=== PATIENT | female | born 1955 | race African-American/Black ===

== ENCOUNTER → 2016-08-19 | Outpatient (CLI) | payer OTHER ==
[~2016-08-19] MED LIST: FERR-26 PO; HYDR25TA9 PO; IBUP-1060 PO; MULT-460 PO
[2016-08-19 15:09] VITALS: BP 138/91
== END | disposition home or self-care (01) ==
LOC: SURGPAT 16:11
PROVIDERS: ATTEND Orthopaedic Surgery
DX: Z01.812 Encounter for preprocedural laboratory examination (principal); M17.11 Unilateral primary osteoarthritis, right knee
CPT/HCPCS: 87641

== ENCOUNTER 2016-09-09 05:32 | Inpatient (IN) | payer MEDICARE, OTHER ==
--- NOTE | 2016-09-08 12:24 | PDOC1 ---
History and Physical Date of Admission Date of Admission DATE: 09/09/16 Identification/Chief Complaint Chief Complaint right knee osteoarthritis pain Source Source: Chart review History of Present Illness History of Present Illness This 61-year-old woman has a long history of bilateral knee pain and diagnosis of knee osteoarthritis. She has had several corticosteroid injections for treatment. She's been doing a home exercise program for strengthening. I saw her previously and recommended that she get dental work done before considering total knee arthroplasty. She now has a dentist near [facility], Dannie Gonzalez, [facility] - General Dentistry - [address], [place] who treated one of her infected teeth by removal of the tooth and oral antibiotics. She has another tooth that is not infected but he is keeping on it. It sounds like she is getting routine care now. She needs to continue doing that we discussed the risks of infected total knee arthroplasty. She no longer has a primary care physician. She needs to get one before we would proceed with arthroplasty. Recently she reports a cough and some pleuritic chest pain. She has daily symptoms in the knee, that affect her activities of daily living. She requested my opinion on a local primary care doctor and I suggested Dr. Gladis Chris, if she is taking new patients. Past Medical History Cardiovascular: HTN Musculoskeletal: Osteoarthritis Past Surgical History Past Surgical History: Tonsillectomy, Hysterectomy Family History Family History: Cancer, Osteo Arthiritis Social History Smoke: No ALCOHOL: none Drugs: None Current Medications Current Medications Current Medications Ondansetron HCl (Zofran) 4 mg PRN Q6HRS PRN IV Nausea; Start 09/09/16 at 07:00 ; Stop 09/10/16 at 06:59; Status UNV Fentanyl Citrate (Fentanyl 2ml Vial) 25 mcg PRN Q5MIN PRN IV MILD PAIN; Start 09/09/16 at 07:00; Stop 09/10/16 at 06:59 Fentanyl Citrate (Fentanyl 2ml Vial) 50 mcg PRN Q5MIN PRN IV MODERATE PAIN; Start 09/09/16 at 07:00; Stop 09/10/16 at 06:59 Morphine Sulfate 1 mg 1 mg PRN Q10MIN PRN IV SEVERE PAIN; Start 09/09/16 at 07: 00; Stop 09/10/16 at 06:59; Status UNV Lactated Ringer's (Iv Lactated Ringers) 1,000 ml @ 0 mls/hr Q0M IV ; Start at 07:00; Stop 09/09/16 at 18:59; Status UNV Lidocaine HCl 2 ml 1X PRN PRN ID IV START; Start 09/09/16 at 07:00; Stop at 06:59; Status UNV Hydromorphone HCl (Dilaudid) 0.5 mg PRN Q10MIN PRN IV SEVERE PAIN, Second choice; Start 09/09/16 at 07:00; Stop 09/10/16 at 06:59; Status UNV Prochlorperazine Edisylate (Compazine) 5 mg PACU PRN PRN IV NAUSEA; Start 09/09 at 07:00; Stop 09/10/16 at 06:59; Status UNV Active Scripts Active Reported Ferrous Sulfate 325 Mg Tablet 1 Tab PO DAILY Multiple Vitamin (Multivitamin With Minerals) 1 Each Tablet 1 Each PO DAILY Hydrochlorothiazide Tablet (Hydrochlorothiazide) 25 Mg Tablet 1 Tab PO DAILY Allergies Allergies: Coded Allergies: No Known Drug Allergies (Unverified , 08/23/14) Physical Exam General: Alert, Oriented X3, Cooperative, No acute distress HEENT: Atraumatic, EOMI Lungs: Normal air movement Heart: RRR Abdomen: Soft Extremities: No clubbing, No cyanosis, Normal pulses, Other (The right knee shows her mildly antalgic gait. There is valgus alignment. No masses. No detectable effusion. Tenderness on the joint lines. Range of motion is 5-115 degrees. There is crepitus with range of motion, and pain at the extremes of motion. The knee is stable to varus and valgus stress without subluxation or laxity. Muscle strength is normal (5/5) for quadriceps and hamstrings, and muscle tone is normal. The skin is normal with no scars, rashes, lesions or ulcers. Light touch sensation is intact. No edema and no varicosities. Dorsalis pedis pulse is intact and capillary refill is normal. The left knee shows valgus alignment. No masses. No detectable effusion. Tenderness on the joint lines. Range of motion is 5-115 degrees. There is crepitus with range of motion , and pain at the extremes of motion. The knee is stable to varus and valgus stress without subluxation or laxity. Muscle strength is normal (5/5) for quadriceps and hamstrings, and muscle tone is normal. The skin is normal with no scars, rashes, lesions or ulcers. Light touch sensation is intact. No edema and no varicosities. Dorsalis pedis pulse is intact and capillary refill is normal.) Skin: No rashes, No breakdown, No significant lesion Neuro: Normal speech, Sensation intact Psych/Mental Status: Mental status NL, Mood NL VTE Prophylaxis Ordered VTE Prophylaxis Devices: Yes VTE Pharmacological Prophylaxi: Yes Assessment/Plan Assessment/Plan Right knee osteoarthritis. The patient and Dr. Cano discussed options for treatment. She is now 61 years old and has daily symptoms in her knees. She has [id number] changes radiographically. Cortisone injections only given her brief relief. She has tried an exercise program with minimal improvement in her symptoms. She has occasional giving way episodes. The only surgery would recommend his total knee arthroplasty. Due to the risks of simultaneous bilateral arthroplasty Dr. Cano recommended doing one at a time. We discussed the risks benefits and alternatives of total knee arthroplasty. She would benefit regarding her pain and ability to remain active. There are certainly risks and we discussed those in detail. We discussed the potential risks of infection, neurovascular injury, bleeding, blood clots, need for revision surgery, or other potential surgical or anesthetic complications. We discussed the potential of infection if her teeth continue to be a problem although it sounds like those are being treated appropriately now. There is some risk of revision during her lifetime but I would plan to use a "30 year knee" that may last the rest of her life. We can schedule the right total knee arthroplasty in mid to late August, and ask her to find a primary care doctor and get medical clearance. She does report this recent onset coughing pleuritic chest pain that certainly needs at least a chest x-ray before we would consider proceeding with surgery. She stated understanding of the risks benefits and alternatives and would like to proceed. We can do a left knee cortisone injection today. CARRIE RICH Sep 08, 2016 12:24
[~2016-09-09] VITALS: Ht 182.9 cm; Wt 116.1 kg
[2016-09-09] VITALS (10 sets, daily range): BP systolic 106–144; BP diastolic 50–62
[2016-09-09] MEDS ORDERED: TRANEXAMIC ACID 1,000 MG in IV NORMAL SALINE 50ML 50 ML INJ ONE ×2 (06:00→08:00)
[2016-09-09] MEDS ORDERED: CEFAZOLIN 2GM PREMIX 50 ML IV PRN (06:00)
[2016-09-09] MEDS ORDERED: HYDROCODONE/APAP 7.5/325MG TABLET. PO PRN ×2 (06:00→09:45)
[2016-09-09] MEDS ORDERED: MORPHINE SULFATE 5 MG, KETOROLAC TROMETHAMINE 30 MG, ROPIVacaine 0.5% PF 60 ML, EPINEPH... INT ART ONE ×5 (06:00)
[2016-09-09] MEDS ORDERED: CELECOXIB 200 MG CAPSULE PO PRN (06:00)
[2016-09-09] MEDS ORDERED: CELE200C PO (06:10)
[2016-09-09] MEDS ORDERED: TOBRAMYCIN POWDER 1.2 GM VIAL. ONE (06:17)
[2016-09-09] MEDS ORDERED: VANCOMYCIN 1 GM VIAL. ONE (06:17)
[2016-09-09] MEDS ORDERED: PROCHLORPERAZINE 10 MG/2 ML VIAL. IV PRN ×2 (07:00→09:45)
[2016-09-09] MEDS ORDERED: LIDOCAINE 1% 1 ML SYRINGE. ID PRN (07:00)
[2016-09-09] MEDS ORDERED: ONDANSETRON PF 4 MG/2 ML VIAL. IV PRN (07:00)
[2016-09-09] MEDS ORDERED: MORPHINE SULFATE 2 MG/ML DISP.SYRIN. IV PRN ×2 (07:00→09:45)
[2016-09-09] MEDS ORDERED: HYDROMORPHONE 2 MG/ML VIAL. IV PRN (07:00)
[2016-09-09] MEDS ORDERED: IV RINGERS,LACTATED 1000ML 1,000 ML IV SCH (07:00)
[2016-09-09] MEDS ORDERED: FENTANYL PF 100 MCG/2 ML VIAL. IV PRN ×4 (07:00→09:45)
[2016-09-09] MEDS ORDERED: SEVOFLURANE > 120 MINUTES. IH ONE (07:11)
[2016-09-09] MEDS ORDERED: PROPOFOL 20 ML IV ONE (07:11)
[2016-09-09] MEDS ORDERED: LIDOCAINE 2% 100 MG/5 ML DISP.SYRIN. ONE (07:11)
[2016-09-09] MEDS ORDERED: ONDANSETRON PF 4 MG/2 ML VIAL. ONE (07:21)
[2016-09-09] MEDS ORDERED: DEXAMETHASONE SOD PHOS 20 MG/5 ML VIAL. ONE (07:21)
[2016-09-09] MEDS ORDERED: FENTANYL PF 100 MCG/2 ML VIAL. ONE (07:36)
[2016-09-09] MEDS ORDERED: TRAMADOL 50 MG TABLET. PO PRN ×2 (09:45)
[2016-09-09] MEDS ORDERED: DIPHENHYDRAMINE 50 MG/ML VIAL IV PRN (09:45)
[2016-09-09] MEDS ORDERED: MORPHINE SULFATE 4 MG/ML DISP.SYRIN. IV PRN ×2 (09:45)
[2016-09-09] MEDS: IV DEXTROSE 5 %-0.45 % NACL 1,000 ML IV SCH ×2 (09:45→11:47)
[2016-09-09] MEDS ORDERED: MORPHINE SULFATE 10 MG/ML VIAL. IV PRN (09:45)
[2016-09-09] MEDS ORDERED: DEXTROSE 50% 25 GM / 50ML DISP.SYRIN. IV PRN (09:45)
[2016-09-09] MEDS ORDERED: ZOLPIDEM 5 MG TABLET. PO PRN (09:45)
[2016-09-09] MEDS ORDERED: METOCLOPRAMIDE HCL 10 MG/2 ML VIAL. IV PRN (09:45)
[2016-09-09] MEDS ORDERED: HYDROCODONE/APAP 10/325 TABLET. PO PRN (09:45)
[2016-09-09] MEDS ORDERED: OXYCODONE/APAP 5/325 TABLET. PO PRN (09:45)
[2016-09-09] MEDS ORDERED: 0.9 % SODIUM CHLORIDE 10 ML DISP.SYRIN. IV PRN (09:45)
[2016-09-09] MEDS ORDERED: PROCHLORPERAZINE 5 MG TABLET. PO PRN (09:45)
[2016-09-09] MEDS ORDERED: OXYCODONE/APAP 7.5/325 TABLET. PO PRN (09:45)
[2016-09-09] MEDS ORDERED: CALCIUM CARBONATE 500 MG TAB.CHEW PO PRN (09:45)
--- NOTE | 2016-09-09 09:53 | PDOC4 ---
Operative Note Operative Note Date of Procedure: September 09, 2016 Pre-Op Diagnosis: Osteoarthritis right knee Post-Op Diagnosis: Osteoarthritis right knee Procedure: right total knee arthroplasty Surgeon: Dedrick Cano MD Movie Stunt Performer: Maame Kwan PA-C Anesthesia: General EBL: 100 mL Specimens Obtained: right knee bone and soft tissue Complications: none Implant Company: [employer] Drains: pain catheter Tourniquet time: 60 minutes Indications for Procedure: Arthritis pain unrelieved by nonoperative management. Findings: Severe osteoarthritis with bone on bone contact laterally Implants used: Size 5 right bicruciate stabilized Journey II BCS oxinium femoral component, size 5 right Journey nonporous tibial baseplate, size 5-6 10 mm right Journey II BCS XLPE articular insert, 38 mm oval Liz II resurfacing patellar component Procedure in Detail: The patient was identified in the preoperative holding area, and the correct right extremity was marked by me. The patient was taken to the operating room where the patient was anesthetized by the Department of Anesthesia. Preoperative antibiotics were given intravenously. Tranexamic acid 1 g was given intravenously for intraoperative hemostasis. A "time-out" procedure was performed. The patient was positioned supine on the operative table with a tourniquet on the upper thigh. The limb was thoroughly prepped and draped in sterile fashion. An impervious stockinet and adhesive drape were used such that the skin was entirely covered. An Block leg gonzalez was used. The operating team wore personal exhaust-ventilated hoods. The tourniquet was inflated to 350 mm Hg. A midline skin incision was made with a scalpel using the patella and tibial tubercle as landmarks. Electrocautery was used for hemostasis. My home based assistant used rake retractors. A medial parapatellar arthrotomy incision was used with extension into the distal quadriceps tendon. The patella was retracted laterally and Hohmann retractors were now used by my home based assistant. Excess synovium, the menisci, and the cruciate ligaments were resected sharply. The patella was assessed and excess synovium and osteophytes around the patellar articulation were removed. The patella was measured with a caliper, cut freehand with a saw using caliper measurements, sized, and then drilled for an oval three-pegged patella component. Periarticular injection was used in the suprapatellar pouch and distal quadriceps muscle. Whitesides's line was assessed on the femur. An intra-medullary 5 degree cutting guide was pinned to the femur, and a distal femoral cut was made with an oscillating saw. An additional 4 mm resection was used due to the deep femoral sulcus, and deficient femoral condyle.My home based assistant held Hohmann retractors and an Army-B[employer] retractor to protect the medial and lateral collateral ligaments, the patellar tendon, the skin and the other soft tissues. An anterior referencing guide was applied with external rotation of 4 to match Whitesides line. A 5-in-1 Journey II cutting guide was then applied and pinned to the femur. The posterior, anterior, and all chamfer cuts were made with the oscillating saw. An extramedullary guide was pinned to the tibia and rotational alignment and the planned resection thickness assessed. An external alignment daniela was used to verify the planned cut in the varus-valgus plane and regarding posterior slope referencing the tibial tubercle, the tibial shaft, the ankle joint, and the second metatarsal. The upper tibia was cut made with an oscillating saw. My home based assistant held Hohmann retractors and a posterior cruciate ligament retractor to protect the medial and lateral collateral ligaments, the patellar tendon, the skin, the peroneal nerve and the other soft tissues. The upper tibia was sized with a trial baseplate. The posterior compartment was cleared of osteophytes and loose bodies, and posterior capsule released. Fabi-articular injection was used in the posterior compartment. The box cut for a posterior stabilized component was made. A preliminary reduction was performed with a trial femur, trial tibial baseplate and trial polyethylene. Soft-tissue balancing was now performed, and extension and rotation of the alignments was checked using a guide daniela in the tibial trial and a guide pin in the femur. No additional releases were required. The stability was assessed using different thicknesses of tibial articular surface to find satisfactory stability and good range of motion. The rotation of the tibial component was marked on the upper tibia. Final trial reduction was now performed verifying patella tracking and tibiofemoral stability and alignment. The tibia preparation was completed with a drill, saw, and fin punch at the previously noted rotation. The final implants were verified and opened. Outer gloves were changed by the operating team. The bone cuts were washed thoroughly with the feedPack InterPulse device and dried. Two packages of Palacos bone cement were mixed in powdered form with 1 gm of Vancomycin and 1.2 g tobramycin, then vacuum-mixed with the monomer, and placed into a cement gun. The cut surfaces of the bone were thoroughly dried with Fu-tip suction and with laparotomy sponges for cement interdigitation. The final components were cemented into place. The knee was kept at full extension while the cement hardened, and excess cement was removed. Tranexamic acid 1 g was redosed intravenously for additional intraoperative hemostasis. A final periarticular injection was used for pain relief. The tourniquet was released, and electrocautery was used for hemostasis. A final check of rgsnq-ud-voxobe and stability was made, and the polyethylene implant final size was chosen. The polyethylene implant was secured to the tibial baseplate, and the knee was reduced a final time. Thorough irrigation was used. A pain catheter was inserted. The arthrotomy was closed with interrupted [id number]-[id number] #1 PDS suture. The capsulotomy was then run with #1 STRATAFIX symmetric PDS plus. The subcutaneous tissues were closed with #2-0 Vicryl by my home based assistant. The skin was reapproximated with staplesby my home based assistant. A bulky sterile dressing was applied. Needle and sponge counts were correct. DEDRICK CANO MD Sep 09, 2016 09:53
--- NOTE | 2016-09-09 10:11 | RAD ---
Indication: Postop right knee. Time of exam 10 0 3:00 AM 2 views right knee demonstrate postop changes of total knee arthroplasty. The prosthetic elements are in good position. No fracture or loosening is seen. Overlying skin ottoniel are noted. Impression: Satisfactory postop right knee.
[2016-09-09] MEDS: CEFAZOLIN 2GM PREMIX 50 ML IV SCH ×2 (13:46→20:59)
[2016-09-09] MEDS: KETOROLAC TROMETHAMINE 30 MG, BUPIVACAINE MPF 0.25% 20 ML, EPINEPHRINE 0.5 MG in TOTAL ... INT ART SCH (18:03)
[2016-09-09] MEDS: FERROUS SULFATE 325 MG TABLET PO SCH (18:03)
[2016-09-09] MEDS: ASPIRIN ENTERIC COATED 325 MG TABLET.DR. PO SCH (20:58)
[2016-09-09] MEDS: CELECOXIB 200 MG CAPSULE PO SCH (20:58)
[2016-09-10] MEDS: CEFAZOLIN 2GM PREMIX 50 ML IV SCH (02:03)
[2016-09-10 02:48] VITALS: BP 99/53
[2016-09-10] MEDS: IV DEXTROSE 5 %-0.45 % NACL 1,000 ML IV SCH ×2 (05:45→15:45)
[2016-09-10] MEDS: KETOROLAC TROMETHAMINE 30 MG, BUPIVACAINE MPF 0.25% 20 ML, EPINEPHRINE 0.5 MG in TOTAL ... INT ART SCH (05:59)
[2016-09-10] MEDS ORDERED: MAGNESIUM HYDROXIDE 2,400 MG/30 ML ORAL.SUSP. PO PRN (06:00)
[2016-09-10 06:32] VITALS: BP 107/57
[2016-09-10 07:39] LABS: HEMATOCRIT 34.6 % (36.0-47.0); HEMOGLOBIN 11.5 g/dL (12.0-15.5); RED BLOOD COUNT 3.78 x10^6/uL (3.50-5.40)
[2016-09-10] MEDS: FERROUS SULFATE 325 MG TABLET PO SCH ×2 (08:19→17:08)
[2016-09-10] MEDS: CELECOXIB 200 MG CAPSULE PO SCH ×2 (08:19→20:57)
[2016-09-10] MEDS: MULTIVITAMIN with MINERAL TABLET. PO SCH (08:19)
[2016-09-10] MEDS: ASPIRIN ENTERIC COATED 325 MG TABLET.DR. PO SCH ×2 (08:19→20:57)
[2016-09-10] MEDS: SENNOSIDES/DOCUSATE 8.6/50MG TABLET. PO SCH (08:19)
[2016-09-10] MEDS ORDERED: NON FORMULARY ITEM (Multivitamin With Minerals (Multiple Vitamin) 1 EACH) PO SCH (09:00)
[2016-09-10] MEDS: HYDROCHLOROTHIAZIDE 25 MG TABLET PO SCH (09:00)
--- NOTE | 2016-09-10 12:34 | PDOC ---
PROGRESS NOTES Subjective Subjective No complaints. She is doing well and pain is controlled. Objective Vital Signs Vital Signs Date Time Temp Pulse Resp B/P Pulse Ox O2 Delivery O2 Flow Rate FiO2 09/10/16 06:32 97.1 55 20 107/57 94 Room Air 97.1 09/09/16 10:59 10.0 Physical Exam Dressing dry. Pain catheter in place. Good dorsiflexion and plantarflexion of the foot with no evidence of neurovascular injury or DVT. Calves are soft and nontender with a negative Homans sign. Peripheral pulses and light touch sensation intact. Labs Laboratory Tests Test 09/10/16 07:31 White Blood Count 9.0x10^3/uL (4.0-11.0) Red Blood Count 3.78x10^6/uL (3.50-5.40) Hemoglobin 11.5g/dL (12.0-15.5) Hematocrit 34.6% (36.0-47.0) Mean Corpuscular Volume 92fL (79-100) Mean Corpuscular Hemoglobin 30pg (25-35) Mean Corpuscular Hemoglobin Concent 33g/dL (31-37) Red Cell Distribution Width 14.0% (11.5-14.5) Platelet Count 209x10^3/uL (140-400) Laboratory Tests Test 09/10/16 07:31 White Blood Count 9.0x10^3/uL (4.0-11.0) Red Blood Count 3.78x10^6/uL (3.50-5.40) Hemoglobin 11.5g/dL (12.0-15.5) Hematocrit 34.6% (36.0-47.0) Mean Corpuscular Volume 92fL (79-100) Mean Corpuscular Hemoglobin 30pg (25-35) Mean Corpuscular Hemoglobin Concent 33g/dL (31-37) Red Cell Distribution Width 14.0% (11.5-14.5) Platelet Count 209x10^3/uL (140-400) Imaging Postoperative x-rays reviewed by me, showing satisfactory total knee replacement , with no apparent complications. Assessment Assessment POD #1 right TKA Problems: Plan Plan of Care Continue POC including DVT prophylaxis and physical therapy. Plan for discharge to home (her daughter's house) on Thursday with outpatient PT at [facility]. CARRIE RICH Sep 10, 2016 12:34
[2016-09-10 15:00] VITALS: BP 112/48
[2016-09-10] MEDS ORDERED: BISACODYL 10 MG SUPP.RECT PR PRN (16:00)
[2016-09-10] MEDS: ACETAMINOPHEN 325 MG TABLET. PO PRN (17:08)
[2016-09-10 19:00] VITALS: BP 81/51
[2016-09-11 05:59] VITALS: BP 115/56
[2016-09-11 06:06] LABS: HEMATOCRIT 33.3 % (36.0-47.0)
[2016-09-11] MEDS: SENNOSIDES/DOCUSATE 8.6/50MG TABLET. PO SCH (08:34)
[2016-09-11] MEDS: CELECOXIB 200 MG CAPSULE PO SCH ×2 (08:34→20:49)
[2016-09-11] MEDS: ASPIRIN ENTERIC COATED 325 MG TABLET.DR. PO SCH ×2 (08:34→20:49)
[2016-09-11] MEDS: FERROUS SULFATE 325 MG TABLET PO SCH ×2 (08:34→17:10)
[2016-09-11] MEDS: MULTIVITAMIN with MINERAL TABLET. PO SCH (08:34)
[2016-09-11] MEDS: ACETAMINOPHEN 325 MG TABLET. PO PRN ×2 (08:42→17:52)
[2016-09-11] MEDS: HYDROCHLOROTHIAZIDE 25 MG TABLET PO SCH (09:00)
[2016-09-11 12:23] VITALS: BP 113/79
--- NOTE | 2016-09-11 13:40 | PDOC ---
PROGRESS NOTES Subjective Subjective She says the knee is not particularly painful, but is stiff. Morning therapy went well. Objective Vital Signs Vital Signs Date Time Temp Pulse Resp B/P Pulse Ox O2 Delivery O2 Flow Rate FiO2 09/11/16 12:23 97.9 64 16 113/79 98 Room Air 97.9 09/11/16 07:58 10.0 Physical Exam Right knee Aquacel dressing with spotty drainage only. Pain catheter has been removed. Expected swelling. Calf soft and nontender, with negative Jessica's sign. Good dorsiflexion and plantarflexion. Peripheral pulses and light touch sensation intact. Labs Laboratory Tests Test 09/10/16 07:31 09/11/16 05:45 White Blood Count 9.0x10^3/uL (4.0-11.0) Red Blood Count 3.78x10^6/uL (3.50-5.40) Hemoglobin 11.5g/dL (12.0-15.5) 11.0g/dL (12.0-15.5) Hematocrit 34.6% (36.0-47.0) 33.3% (36.0-47.0) Mean Corpuscular Volume 92fL (79-100) Mean Corpuscular Hemoglobin 30pg (25-35) Mean Corpuscular Hemoglobin Concent 33g/dL (31-37) 33g/dL (31-37) Red Cell Distribution Width 14.0% (11.5-14.5) Platelet Count 209x10^3/uL (140-400) Laboratory Tests Test 09/11/16 05:45 Hemoglobin 11.0g/dL (12.0-15.5) Hematocrit 33.3% (36.0-47.0) Mean Corpuscular Hemoglobin Concent 33g/dL (31-37) Assessment Assessment POD #2 right TKA Problems: Plan Plan of Care Continue POC including PT and DVT ppx with aspirin 325mg twice daily. Plan for discharge to home tomorrow afternoon with outpatient therapy at [facility]. Dr. Cano saw and examined the patient as well. CARRIE RICH Sep 11, 2016 13:40
--- NOTE | 2016-09-11 15:10 | PATHOLOGY ---
PATHOLOGY REPORT * * * * * * * * FINAL DIAGNOSIS: Segments of bone and soft tissue, right total knee arthroplasty: - Advanced degenerative arthritis. (JPM:; d/t: 09/11/16) REPORT ELECTRONICALLY SIGNED BY: Eyal Kunz M.D. DATE/TIME: 09/11/2016 15:09 * * * * * * * * GROSS PATHOLOGY: Received in formalin labeled "Tiffanie Rosenthal, right knee tissue," are multiple segments of bone, including tibial plateau, measuring 9.5 x 9.0 x 2.9 cm in aggregate dimensions admixed with soft tissue; meniscus is present. The specimen shows focal eburnation of the articular surfaces. Press Brake Operator sections of bone and soft tissue are submitted in cassette A1, following decalcification. (CAA; 09/10/2016) INITIAL CPT CODE(S): A; 92151, 98694 Professional services [place] [address] Technical services performed by [facility] at [address] [place] [address], [facility] [address] [place] [address]. SPECIMEN(S) RECEIVED: A.Right knee tissue CLINICAL HISTORY: Right knee OA PATIENT: TIFFANIE ROSENTHAL /AGE: 804/01/1955 (Age: 61) PATIENT #: [id number] ALT CASE #: SPECIMEN COLLECTION DATE: 09/09/2016 SPECIMEN RECEIVED DATE: 09/09/2016 [facility] - [address] [place] [address] - PHONE: [phone] * * * END OF REPORT * * *
[2016-09-11 18:00] VITALS: BP 109/51
[2016-09-12 06:02] VITALS: BP 99/63
[2016-09-12] MEDS: CELECOXIB 200 MG CAPSULE PO SCH (08:40)
[2016-09-12] MEDS: SENNOSIDES/DOCUSATE 8.6/50MG TABLET. PO SCH (08:40)
[2016-09-12] MEDS: MULTIVITAMIN with MINERAL TABLET. PO SCH (08:40)
[2016-09-12] MEDS: ACETAMINOPHEN 325 MG TABLET. PO PRN (08:40)
[2016-09-12] MEDS: FERROUS SULFATE 325 MG TABLET PO SCH (08:40)
[2016-09-12] MEDS: ASPIRIN ENTERIC COATED 325 MG TABLET.DR. PO SCH (08:40)
[2016-09-12 09:00] VITALS: BP 102/70
[2016-09-12] MEDS: HYDROCHLOROTHIAZIDE 25 MG TABLET PO SCH (09:00)
[2016-09-12 12:22] LABS: HEMATOCRIT 34.4 % (36.0-47.0); HEMOGLOBIN 11.6 g/dL (12.0-15.5)
[2016-09-12] MEDS ORDERED: OXYC-323 PO (13:55)
[2016-09-12] MEDS ORDERED: ASPI325T11 PO ×2 (14:03→14:04)
--- NOTE | 2016-09-12 14:35 | PDOC ---
PROGRESS NOTES Subjective Subjective Doing well. She says the knee is stiff but is not painful. Objective Vital Signs Vital Signs Date Time Temp Pulse Resp B/P Pulse Ox O2 Delivery O2 Flow Rate FiO2 09/12/16 09:00 80 102/70 09/12/16 07:45 Room Air 09/12/16 06:02 98.3 17 96 98.3 09/11/16 07:58 10.0 Physical Exam Expected swelling. Dressing with spotty drainage only. Calf soft and nontender with a negative Homans sign. Good AROM of ankle. Peripheral pulses and light touch sensation intact. Labs Laboratory Tests Test 09/11/16 05:45 09/12/16 12:05 Hemoglobin 11.0g/dL (12.0-15.5) 11.6g/dL (12.0-15.5) Hematocrit 33.3% (36.0-47.0) 34.4% (36.0-47.0) Mean Corpuscular Hemoglobin Concent 33g/dL (31-37) 34g/dL (31-37) Laboratory Tests Test 09/12/16 12:05 Hemoglobin 11.6g/dL (12.0-15.5) Hematocrit 34.4% (36.0-47.0) Mean Corpuscular Hemoglobin Concent 34g/dL (31-37) Assessment Assessment POD #3 right TKA Problems: Plan Plan of Care Discharge to home today with outpatient PT at [facility]. She will be staying with her daughter. Continue DVT prophylaxis and physical therapy. F/U 10-14 days. CARRIE RICH Sep 12, 2016 14:35
--- NOTE | 2016-09-12 14:43 | PDOC3 ---
Discharge Summary Visit Information Date of Admission: Sep 09, 2016 Date of Discharge: Sep 12, 2016 Admitting Diagnosis: right knee osteoarthritis pain Final Diagnosis Problems Medical Problems: (1) Osteoarthritis of right knee Status: Acute Brief Hospital Course Allergies Allergies Coded Allergies Type Severity Reaction Last Updated Verified No Known Drug Allergies 09/09/16 No Vital Signs Vital Signs Date Time Temp Pulse Resp B/P Pulse Ox O2 Delivery O2 Flow Rate FiO2 09/12/16 09:00 80 102/70 09/12/16 07:45 Room Air 09/12/16 06:02 98.3 17 96 98.3 09/11/16 07:58 10.0 Lab Results Laboratory Tests Test 09/11/16 05:45 09/12/16 12:05 Hemoglobin 11.0g/dL (12.0-15.5) 11.6g/dL (12.0-15.5) Hematocrit 33.3% (36.0-47.0) 34.4% (36.0-47.0) Mean Corpuscular Hemoglobin Concent 33g/dL (31-37) 34g/dL (31-37) Laboratory Tests Test 09/12/16 12:05 Hemoglobin 11.6g/dL (12.0-15.5) Hematocrit 34.4% (36.0-47.0) Mean Corpuscular Hemoglobin Concent 34g/dL (31-37) Brief Hospital Course 61 year old female who presented with right knee osteoarthritis, for elective right total knee arthroplasty. The patient underwent total knee arthroplasty under general anesthesia the day of admission. Perioperative antibiotics and DVT prophylaxis were used. Postoperatively physical therapy and case management were consulted. The patient progressed and is stable for discharge. Discharge Information Condition at Discharge: Stable Follow Up: Weeks (2) Disposition/Orders: D/C to Home Scheduled Aspirin (Aspirin Ec) 1 TAB PO BID (Reported) Aspirin (Aspirin Ec) 325 MG PO BID (Reported) Celecoxib (Celebrex) 1 CAP PO 1X (Reported) Ferrous Sulfate (Ferrous Sulfate) 1 TAB PO DAILY (Reported) Hydrochlorothiazide (Hydrochlorothiazide Tablet ) 1 TAB PO DAILY (Reported) Multivitamin With Minerals (Multiple Vitamin) 1 EACH PO DAILY (Reported) Scheduled PRN Oxycodone/Apap 5-325 (Percocet 5-325 Mg Tablet) 1-2 TAB PO Q4HRS PRN PRN PAIN ( Reported) Patient Instructions Patient Instructions Patient Instructions Continue to WBAT with walker. Keep dressing dry and intact. F/U with [facility] in 10-14 days. Call for appointment. Physical therapy for TKA Continue DVT prophylaxis with aspirin 325mg by mouth twice daily. CARRIE RICH Sep 12, 2016 14:43
[2016-09-12 15:00] VITALS: BP 109/60
== END 2016-09-12 15:30 | disposition home or self-care (01) | DRG 470 ==
LOC: OPSVCIP 05:32 → 4 SOUTHEST 10:22
PROVIDERS: ADMIT Orthopaedic Surgery; ATTEND Orthopaedic Surgery
PROC: 0SRC0J9 Replacement of Right Knee Joint with Synthetic Substitute, Cemented, Open Approach (ICD-10-PCS; principal; 2016-09-09 07:10)
DX: M17.11 Unilateral primary osteoarthritis, right knee (principal); I10 Essential (primary) hypertension; K04.7 Periapical abscess without sinus; Z90.710 Acquired absence of both cervix and uterus
CPT/HCPCS: 36415; 73560; 85014; 85018; 85027; 86850; 86900; 86901; 88305; 88311; J0171; J0690; J1100; J1885; J2270; J2405; J2704; J2795; J3010; J3260; J3370; J3490; J7030; J7120; 97116; 97150; 97530; 97535; C1769

== ENCOUNTER → 2017-02-24 | Outpatient (CLI) | payer OTHER, MEDICAID ==
[2017-01-08 11:00] VITALS: BP 120/66
[~2017-02-24] MED LIST changes: +AMOX1TAB61 PO; +ASPI325T11 PO; +CELE200C PO; +CONTRAST GIVEN MC PRN; +DOXY100C2 PO; +IOHEXOL 240 MG/ML 50ML VIAL. ONE; +IOHEXOL 240 MG/ML 50ML VIAL. PO ONE; +IOHEXOL 300 MG/ML 75 ML VIAL IV ONE; +IOHEXOL 300 MG/ML 75 ML VIAL ONE; +OXYC-323 PO
== END ==
LOC: CT 12:23
PROVIDERS: ATTEND Internal Medicine Hematology & Oncology
DX: C22.1 Intrahepatic bile duct carcinoma (principal); Z53.29 Procedure and treatment not carried out because of patient's decision for other reasons
CPT/HCPCS: 74177; Q9966; Q9967